=== PATIENT | female | born 1945 | race Caucasian/White ===

== ENCOUNTER 2021-06-11 18:28 | Inpatient (IN) | payer MEDICARE, OTHER ==
[~2021-06-11] VITALS: Ht 160 cm; Wt 94.1 kg
[2021-06-11] MEDS ORDERED: ATOR40TA PO (18:54)
[2021-06-11] MEDS ORDERED: CALC.25 PO (18:55)
[2021-06-11] MEDS ORDERED: Calcium Acetat667 MG PO (18:56)
[2021-06-11] MEDS ORDERED: 1/2 NS 250ml250 ML (19:07)
[2021-06-12 04:07] LABS: BASOPHILS ABSOLUTE AUTO 0.14 K/mm3 (0.00-0.23); BASOPHILS PERCENT AUTO 1 % (0-2); EOSINOPHILS ABSOLUTE AUTO 0.52 K/mm3 (0.00-0.68); EOSINOPHILS PERCENT AUTO 4 % (0-6); Hematocrit 36.6 % (33.0-51.0); Hemoglobin 11.3 g/dL (11.5-16.0); IMMATURE GRAN ABSOLUTE AUTO 0.65 K/mm3 (0.00-0.10); IMMATURE GRAN PERCENT AUTO 5 % (0-1); LYMPHOCYTES ABSOLUTE AUTO 2.35 K/mm3 (0.84-5.20); LYMPHOCYTES PERCENT AUTO 18 % (21-46); MONOCYTES ABSOLUTE AUTO 1.23 K/mm3 (0.16-1.47); MONOCYTES PERCENT AUTO 9 % (4-13); Mean Corpuscular HGB 30.5 pg (26.0-34.0); Mean Corpuscular HGB Conc 30.9 g/dL (31.5-36.5); Mean Corpuscular Volume 99 fL (80-100); NEUTROPHILS ABSOLUTE AUTO 8.36 K/mm3 (1.96-9.15); NEUTROPHILS PERCENT AUTO 63 % (41-73); Platelet Count 353 K/mm3 (150-400); RDW Coefficient Variation 13.4 % (11.7-14.2); RDW Standard Deviation 48.5 fL (35.1-46.3); White Blood Cell Count 13.25 K/mm3 (4.00-11.30)
[2021-06-12 04:29] LABS: Albumin, Blood 2.8 g/dL (3.4-5.0); Albumin/Globulin Ratio 0.7 (0.8-1.8); Bilirubin, Total 0.4 mg/dL (0.1-1.0); Bun/Creatinine Ratio 4.8 (12.0-20.0); Calcium, Blood 9.7 mg/dL (8.5-10.1); Creatinine, Blood 7.77 mg/dL (0.40-1.00); Globulin, Blood 4.2 g/dL (2.2-4.0); Potassium, Blood 3.6 mmol/L (3.5-5.5)
--- NOTE | 2021-06-12 06:20 | NUR ---
SHIFT SUMMARY: PT WAS ABLE TO ANSWER ORIENTATION QUESTIONS, BUT UNCLEAR TO HOW SHE ENDED UP IN HOSPITAL. SHE REPORTS THAT SHE BROKE HER LEG 2 WKS AGO (FROM A FALL AT HOME) AND STATES SHE WAS SUPPOSED TO HAVE DIALYSIS ON DAY OF ADMIT, WHICH CORRESPONDS TO EVENTS REPORTED BY SIGNIFICANT OTHER. PT HAS INTERMITTENT CONFUSION AND SIGNIFICANT OTHER REPORTS THIS IS ONGOING FOR QUITE SOME TIME. FOR EXAMPLE: PT WAS PICKING AT PEELING MATERIAL FROM BEDSIDE TABLE IN HOSP ROOM LAST NIGHT AND ATTEMPTED TO EAT IT. PT STILL MAKES URINE AND IS INCONT. URINE IN DIAPER WAS NOT DARK IN COLOR, NOR MALODOROUS. PT WAS PLEASANT AND COOPERATIVE OVERNIGHT. SHE WAS UNABLE TO SLEEP SOUNDLY, BUT ABLE TO TAKE A FEW SHORT NAPS. VSS OVERNIGHT. SHE HAS 2 PRESSURE INJURIES TO [facility] -POSSIBLY FROM HER RECENT HOSPITALIZATION. MEPILEX FOAM DRESSINGS APPLIED. PT DID NOT GET UP FROM THE BED OVERNIGHT-REFUSED ORTHOSTATICS UNTIL MORNING. SIGNIFICANT OTHER REPORTS THAT PT WAS D/C'D WITH HOME HEALTH FOR REHAB/STRENGTHENING, A HOSPITAL BED, HOME O2 AND WHEELCHAIR. NO O2 WAS REQUIRED OVERNIGHT.
[2021-06-12] MEDS ORDERED: CELEXA40 M1 PO (11:50)
[2021-06-12] MEDS ORDERED: DIPH50 PO (11:57)
[2021-06-12] MEDS ORDERED: NOVOLOG FL100 UNIT/3 SC (11:58)
[2021-06-12] MEDS ORDERED: SITA50T2 PO (11:58)
[2021-06-12] MEDS ORDERED: NOVOLOG MI100 UNIT/2 (11:59)
[2021-06-12] MEDS ORDERED: NYSTRIT TOP (12:00)
[2021-06-12] MEDS ORDERED: NOVOLOG MI100 UNIT/2 SC (12:00)
[2021-06-12] MEDS ORDERED: OMEPRAZOLE MAGN20 M1 PO (12:01)
[2021-06-12] MEDS ORDERED: SEVELAMER HCL PO (12:11)
[2021-06-12] MEDS ORDERED: TRAZ50 PO (12:12)
[2021-06-12] MEDS ORDERED: VENL75ER PO (12:13)
[2021-06-12] MEDS ORDERED: OLAN5 PO (12:13)
[2021-06-12] MEDS ORDERED: Primidone50 MG PO (12:13)
[2021-06-12] MEDS ORDERED: HYDHCL25 PO (12:14)
[2021-06-12] MEDS ORDERED: ALBU90OI INH (12:15)
--- NOTE | 2021-06-12 18:39 | NUR ---
NO ACUTE EVENTS T/O SHIFT. VSS. PT RECEIVED DIALYSIS TODAY AND TOLERATED WELL. NO C/O OF PAIN, LOW APPETITE, PT CONFUSED AND TEARFUL AT TIMES, ALERT AND ORIENTED X3 AT TIMES. DR RIVAS CONSULTED ON PT. WILL CONTINUE TO MONITOR AND GIVE REPORT TO NOC SHIFT RN.
--- NOTE | 2021-06-13 05:48 | NUR ---
SHIFT SUMMARY: PATIENT EXESSED SADNESS AT START OF SHIFT. SHE REPORTS MISSING HER BOYFRIEND. SHE STATES THAT SHE WAS AFRAID THAT HE WOULD FORGET HER. SHE ALSO ASKED IF SHE WAS GOING TO . COMFORT, REASSURANCE AND ENCOURAGEMENT WAS OFFERED. SHE EXPRESSED GRATITUDE. PATIENT REPORTS HAVING A SORE/DRY THROAT "ALL THE TIME". FLUIDS WERE OFFERED. VITAL SIGNS WERE STABLE OVERNIGHT. TRAZODONE WAS GIVEN AT BEDTIME AND PATIENT WAS ABLE TO SLEEP. NO EPISODES OF UNUSUAL BEHAVIOR OCCURRED OVERNIGHT.
[2021-06-13 09:02] LABS: Hematocrit 36.6 % (33.0-51.0); Hemoglobin 11.2 g/dL (11.5-16.0); Mean Corpuscular HGB 30.8 pg (26.0-34.0); Mean Corpuscular HGB Conc 30.6 g/dL (31.5-36.5); Mean Corpuscular Volume 101 fL (80-100); Mean Platelet Volume 9.8 fL (9.1-12.4); Platelet Count 319 K/mm3 (150-400); RDW Coefficient Variation 13.4 % (11.7-14.2); RDW Standard Deviation 50.2 fL (35.1-46.3); Red Blood Cell Count 3.64 M/mm3 (3.80-5.20); White Blood Cell Count 13.84 K/mm3 (4.00-11.30)
[2021-06-13 09:19] LABS: Albumin, Blood 2.8 g/dL (3.4-5.0); Anion Gap 9 mmol/L (6-16); Blood Urea Nitrogen 34 mg/dL (8-24); Bun/Creatinine Ratio 4.8 (12.0-20.0); CO2, Blood 23 mmol/L (21-32); Calcium, Blood 9.4 mg/dL (8.5-10.1); Chloride, Blood 101 mmol/L (98-108); Creatinine, Blood 7.05 mg/dL (0.40-1.00); Glomerular Filtration Rate 6 (60-); Glucose, Blood 132 mg/dL (70-99); Phosphorus, Blood 1.8 mg/dL (2.5-4.9); Potassium, Blood 3.7 mmol/L (3.5-5.5); Sodium, Blood 133 mmol/L (136-145)
--- NOTE | 2021-06-13 17:55 | NUR ---
NO ACUTE EVENTS T/O SHIFT. PT'S LEVEL OF CONFUSION VARRIED THROUGOUT THE DAY, AT SOME POINTS SHE IS A&OX4 AND AT OTHER TIMES SHE IS ONLY ORIENTED TO SELF AND DOES NOT KNOW WHERE SHE IS OR WHY. NO HD TODAY PER DR RIVAS, NEXT SCHEDULED FOR TOMORROW. PHYSICAL THERAPY EVALUATED PT TODAY, PT WAS ABLE TO SIT UP AT THE BEDSIDE, BUT DID NOT GET OOB D/T UNKNOWN RESTRICTIONS ON HER R LEG FX. RECORDS REQUESTED AND RECEIVED FROM [facility] IN [place], WHERE PT WAS RECENTLY ADMITTED FOR A FALL AND THE R LEG FX. HARVEY MURILLO NOTIFIED AND SHE STATES SHE WILL REVIEW THE RECORDS. PT RECEIVED A FULL BED BATH TODAY AND WAS ABLE TO TALK WITH HER SIGNIFICANT OTHER, LIZET, OVER THE PHONE. NURSING STAFF ENCOURAGING PT TO EAT, SHE HAS A MINIMAL APPETITE. WILL [facility]IN[facility] TO [facility]IT[facility] AND [facility]
--- NOTE | 2021-06-14 04:26 | NUR ---
PATIENT REMAINS IN BED ALER WITH SOME CONFUSIONS AT TIMES, FOLLOW COMMANDS. VITAL SIGNS STABLE.AFEBRILE, NO COMPLAINTS OF PAIN VOICED. INCONTINENT OF BOWEL AND BLADDER.LAST BM 06/13. MEPLEX APPIED TO [facility], PENDING DIALYSIS TODAY AT 0900. LABS TO BE DRAWN BY DIALYSIS NURSE. FREQUENTLY ROUNDS TO ENSURE PATIENT SAFETY. PATIENT REPOSITIONED Q 2 HRS. OFFLOADED TO PREVENT PRESSURE ULCERS. PATIEWNT IN NO DISTRESS. WILL CONTINUE TO MONITOR PATIENT CONDITION UNTIL TRANSFER OF CARE TO ONCOMING RN.
[2021-06-14 09:31] LABS: Hematocrit 33.6 % (33.0-51.0); Hemoglobin 11.2 g/dL (11.5-16.0)
[2021-06-14 09:54] LABS: Albumin, Blood 2.7 g/dL (3.4-5.0); Anion Gap 8 mmol/L (6-16); Blood Urea Nitrogen 47 mg/dL (8-24); Bun/Creatinine Ratio 5.9 (12.0-20.0); CO2, Blood 27 mmol/L (21-32); Calcium, Blood 9.7 mg/dL (8.5-10.1); Chloride, Blood 100 mmol/L (98-108); Creatinine, Blood 7.98 mg/dL (0.40-1.00); Glomerular Filtration Rate 5 (60-); Glucose, Blood 101 mg/dL (70-99); Magnesium, Blood 2.2 mg/dL (1.6-2.4); Phosphorus, Blood 2.6 mg/dL (2.5-4.9); Potassium, Blood 3.8 mmol/L (3.5-5.5); Sodium, Blood 135 mmol/L (136-145)
--- NOTE | 2021-06-14 17:09 | NUR ---
SHIFT SUMMARY PT ALERT AND ORIENTED TO SELF, FAMILY, AND PLACE. PT FORGETFUL AT TIMES, BUT REORIENTS EASILY. VS STABLE. O2 SATS REMAIN ABOVE 90% ON 2L NC. BP STABLE. PT DENIES ANY PAIN. PT HAD DIALYSIS IN ROOM THIS AM. PT FELT VERY ANXIOUS AFTER DIALYSIS AND MEDICATED PER EMAR. PT REPOSITIONED Q2H. PT INCONTINENT OF URINE THIS SHIFT AND ATTENDS IN PLACE. WILL CONTINUE TO MONITOR AND REPORT TO ONCOMING RN
[2021-06-15 04:36] LABS: Albumin, Blood 2.7 g/dL (3.4-5.0); Anion Gap 8 mmol/L (6-16); Blood Urea Nitrogen 27 mg/dL (8-24); Bun/Creatinine Ratio 4.7 (12.0-20.0); CO2, Blood 27 mmol/L (21-32); Calcium, Blood 9.3 mg/dL (8.5-10.1); Chloride, Blood 102 mmol/L (98-108); Creatinine, Blood 5.78 mg/dL (0.40-1.00); Glomerular Filtration Rate 7 (60-); Glucose, Blood 132 mg/dL (70-99); Phosphorus, Blood 2.1 mg/dL (2.5-4.9); Sodium, Blood 137 mmol/L (136-145)
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
--- NOTE | 2021-06-15 16:33 | NUR ---
SHIFT SUMMARY Pt is a/o to self and situation at times but is forgetful and confused. She has talked about her mom a lot today and reports feeling sad about her not being here. She has been inc of urine throughout the shift and is a max assist for turns and brief changes. No dialysis today but her scheduled days are MWF. She has a small open area on her buttock and there is a mepilex CDI. Her boot is in place to her right leg and her skin was intact underneath the boot. Plan is for her to DC to SNf on the [facility] and the DC systems requirements planner is working on finding placement for her as well as setting up dialysis. She is able to make her needs known when asked but does not always use the call light. She is resting now watching TV in bed.
[2021-06-15 21:07] LABS: HBSAG SCREEN Negative (Negative)
--- NOTE | 2021-06-15 23:04 | NUR ---
TRANSFER PT WAS TRANSFERED FROM PCU 19 TP [id number]. PT IS WAS MADE AWARE OF CHANGE. REPORT GIVEN TO RACQUEL RUVALCABA. PT LEFT PCU AT 2250. PT TOLERATED TRANSFER WELL.
--- NOTE | 2021-06-15 23:52 | NUR ---
TRANSFER PATIENT TRANSFERED FROM PCU#19 RECIVED REPORT FROM YUDITH RUVALCABA.PT AO TO SELF WITH SOME CONFUSION HARD OF HEARING NO TEETH IV LINE TO RIGHT AC AND PERMACATH TO LEFT UPPER CHEST INTACT DRESSING DRY PATIENT DIALYSIS -- .LEFT BUTTOCK OPEN WOUND TO LEFT BUTTOCK DRESSING DRY AND INTACT RIGHT LEG BOOT.PATIENT PLESANT BEBA PAIN AT THIS MOMENT
--- NOTE | 2021-06-16 05:09 | NUR ---
SHIFT SUMMARY PATIENT SLEPT THROUGH OUT THE NIGHT FLUIDS AND INCONTINTE CARE DONE BY STAFF NO ACUTE CHANGE IN THIS SHIFT
--- NOTE | 2021-06-16 16:15 | NUR ---
Patient was alert and orient x3. She was able to express her needs by using the call light. She had dialysis this morning and felt a bit fatigued upon returning to the unit. She was compliant with medications, and did request prn Tylenol for earpain. Patient recvd Hydroxyzine prn for anxiety prior to going to dialysis. Patient worked with therapy and continues to sit in the recliner. Patient appetite was fair and her glucose levels have been less than 150. Continue to monitor this patient
--- NOTE | 2021-06-17 03:26 | NUR ---
SHIFT SUMMARY RECEIVED AOX3 WITH SOME CONFUSION AT TIME PLEASANT RECEIVED CALL FROM BOY FRIEND LIZET THAT PT NEEEDS TO SEE INDUSTRIAL CLEANING TECHNICIAN SHE SEEMS DEPRESSED.LUNGS SOUND CLEAR TELE D/C NO ACUTE CHANGE NOTED
[2021-06-17 05:07] LABS: Hematocrit 35.4 % (33.0-51.0); Hemoglobin 11.4 g/dL (11.5-16.0)
[2021-06-17 05:35] LABS: Albumin, Blood 2.6 g/dL (3.4-5.0); Anion Gap 7 mmol/L (6-16); Blood Urea Nitrogen 25 mg/dL (8-24); Bun/Creatinine Ratio 4.8 (12.0-20.0); CO2, Blood 31 mmol/L (21-32); Calcium, Blood 9.2 mg/dL (8.5-10.1); Chloride, Blood 100 mmol/L (98-108); Creatinine, Blood 5.24 mg/dL (0.40-1.00); Glomerular Filtration Rate 8 (60-); Glucose, Blood 131 mg/dL (70-99); Phosphorus, Blood 2.2 mg/dL (2.5-4.9); Potassium, Blood 3.7 mmol/L (3.5-5.5); Sodium, Blood 138 mmol/L (136-145)
--- NOTE | 2021-06-17 06:47 | NUR ---
NEW ORDER RECIEVED NEW ORDER FROM DR GEORGETTE Astorga/Caitlin ROME GIVE SODIUM PHOSPHATE 20MM IV X 1 DOSE.ORDERS UPDATED AND PHARMACY MADE AWARE
--- NOTE | 2021-06-17 10:28 | NUR ---
PT WAS ASSISTED UP FROM THE CHAIR TO THE BSC THIS AM. PASSED GAS NO BM OR VOID. UPON GETTING UP EDGARD THE BSC THE PT FELT LIGHTHEADED/DIZZY AND WAS ASSITED BACK TO THE CHAIR VS WERE TAKEN AND WNL
--- NOTE | 2021-06-17 16:13 | NUR ---
PT IS A/OX3, SLOW TO RESPOND. PLEASANT AND COOPERATIVE. THE PT WAS ASSISTED UP INTO THE CHAIR THIS AM AND TO THE [facility] AFTER BREAKFAST. THE PT BECAME LIGHT HEADED AND DIZZY WHEN UP THE PT SAT BACK DOWN VS CHECKED WERE WNL. THE PT RECOVERED. THE OCCUPATIONAL THERAPIST WORKED WITH THE PT LATER IN THE AM AND WAS ABLE TO TRANSFER THE PT BACK TO BED WITHOUT ANY LIGHTHEADEDNESS EPISODE. THE PT HAD 2 LOOSE BMS TODAY. PT HAD A POOR APPETITE TODAY. PT WAS ENCOURAGED TO DRINK FLUIDS. CALL LIGHT IN REACH. WILL CONTINUE TO MONITOR AND ASSESS FOR CHANGES
--- NOTE | 2021-06-18 03:21 | NUR ---
SHIFT SUMMARY PATIENT ALERT AND ORIENTED PLEASANT NO ASHLEY OF DEPRESSION NOTED DRESSING CHANGED TO BUTTOCK WOUND NOTED REDNESS TO HER PERIAREA CLEANSED AND CREAM APPLIED.NO ACUTE CHANGED
[2021-06-18 05:25] LABS: Hematocrit 34.5 % (33.0-51.0)
[2021-06-18 05:52] LABS: Albumin, Blood 2.6 g/dL (3.4-5.0); Anion Gap 10 mmol/L (6-16); Blood Urea Nitrogen 41 mg/dL (8-24); Bun/Creatinine Ratio 6.2 (12.0-20.0); CO2, Blood 28 mmol/L (21-32); Calcium, Blood 8.5 mg/dL (8.5-10.1); Chloride, Blood 98 mmol/L (98-108); Creatinine, Blood 6.61 mg/dL (0.40-1.00); Glomerular Filtration Rate 6 (60-); Glucose, Blood 118 mg/dL (70-99); Magnesium, Blood 1.9 mg/dL (1.6-2.4); Phosphorus, Blood 3.9 mg/dL (2.5-4.9); Potassium, Blood 3.6 mmol/L (3.5-5.5); Sodium, Blood 136 mmol/L (136-145)
--- NOTE | 2021-06-18 11:50 | NUR ---
PT HAD AN ACTIVE TELE ORDER AT THE START OF THE SHIFT TODAY. CALLED TELE THE PT IS NO LONGER ON TELE, NO DC ORDER IN THE CHART. TELE STATED THE TELE WAS REMOVED ON 06-16-21. CALLED DR HERRON AND SHE STATED THE ORDER SHOULD BE DC'D. DC TELE ORDER PLACED, ALSO RECIEVED ORDER FOR NO IV ACCESS WELL.
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
--- NOTE | 2021-06-18 15:47 | NUR ---
MS COLE IS QUIET IN AFFECT, WORDS DIFFICULT TO UNDERSTAND AT TIMES, ORIENTATED TO HER NAME AND BIRTHDATE, SOME CONFUSED CONVERSATION, SOME CLEAR CONVERSATION. SHE MADE A PHONE CALL TO HER BOYFRIEND THIS MORNING AND HER SPEACH WAS CLEAR AND HER AFFECT MORE UPBEAT WHILE TALKING ON THE PHONE. SHE WENT TO DIALYSIS THIS MORNING. WHEN SHE RETURNED PT WAS WORKING WITH HER, GETTING HER OUT OF BED TO THE CHAIR. MS. COLE SAID SHE FELT UNWELCOME, WAS SAD, DISTRESSED. VOICE VERY QUIET AND SHE KEPT WANTING TO LIE DOWN, NON-SPECIFIC COMPLAINT OF FEELING BAD. VS CHECKED, BP ELEVATED AND HEART RATE ELEVATED (211/117,120S) WHEREAS SHE HAS HISTORICALLY HAD A LOW BP. SHE APPEARED TO BE ANXIOUS. SHE WAS GIVEN THE PHONE TO TALK WITH HER BOYFRIEND, THIS SEEMED TO HELP HER AND HER VOICE WAS CLEARER AGAIN, HR ALREADY DOWN TO 100. 30 MINUTES LATER BP WAS RECHECKED AT 87/57 - MEDS GIVEN PER MAR TO HELP BP. VERY POOR PO INTAKE TODAY. ENCOURAGED TO DRINK ENSURE. SHE TENDS TO TURN HER HEAD AWAY WHEN OFFERED FOOD. SHE DID DRINK HER MILK. ENCOURAGED TO DRINK AND EAT FOR NUTRITIONAL NEEDS. WILL CONTINUE TO ENCOURAGE HER AND GIVE HER EMOTIONAL SUPPORT. PIV REMOVED EARLIER TODAY.
--- NOTE | 2021-06-18 18:54 | NUR ---
MS JAMA HAD ONE EPISODE OF SHORT LASTING HYPERTENSION TODAY, SEE PREVIOUS NOTE, POSSIBLY RELATED TO ANXIETY AND PRIOR AND FUTURE BPS WERE LOW. HAD DIALYSIS THIS MORNING, SAT OUT IN CHAIR FOR A LOT OF THE AFTERNOON. POOR DIET INTAKE, DID TAKE SOME ENSURE WITH ENCOURAGEMENT, BUT OVERALL POOR INTAKE FROM MEAL TRAYS. CONVERSATION WITH CONFUSION, SOMETIMES CLEAR SPEACH, SOMETIMES SPEAKS VERY QUIETLY AND HARD FOR ME TO UNDERSTAND. BLOOD SUGAR 191 PRE SUPPER, BUT MORE LIKELY RELATED TO DRINKS IN THE AFTERNOON RATHER THAN HER FOOD, NOT TAKING MUCH FROM HER MEAL TRAY SO MD CHANGED SLIDING SCALE TO NOT COVER THIS DUE TO POOR PO. PIV REMOVED EARLIER TODAY. BED LOW, CALL LIGHT IN REACH. BED AND CHAIR ALARMS ON TODAY. 2 PERSON ASSIST WITH GAIT BELT AND WALKER FOR TRANSFERS.
[2021-06-19 05:02] LABS: Hematocrit 35.7 % (33.0-51.0); Hemoglobin 11.5 g/dL (11.5-16.0)
[2021-06-19 05:17] LABS: Albumin, Blood 2.4 g/dL (3.4-5.0); Anion Gap 10 mmol/L (6-16); Blood Urea Nitrogen 35 mg/dL (8-24); Bun/Creatinine Ratio 7.2 (12.0-20.0); CO2, Blood 26 mmol/L (21-32); Calcium, Blood 8.7 mg/dL (8.5-10.1); Chloride, Blood 97 mmol/L (98-108); Creatinine, Blood 4.86 mg/dL (0.40-1.00); Glomerular Filtration Rate 9 (60-); Glucose, Blood 137 mg/dL (70-99); Phosphorus, Blood 2.6 mg/dL (2.5-4.9); Potassium, Blood 3.6 mmol/L (3.5-5.5); Sodium, Blood 133 mmol/L (136-145)
--- NOTE | 2021-06-19 08:08 | NUR ---
PT A/O TO PERSON AND STATED THAT SHE BROKE HER LEG, BOOT WAS OFF AND WAS REAPPLIED TO RLE AND CSM WNL TO THAT EXTREMITY, MEDICATED X1 WITH TYLENOL FOR C/O RT. LEG PAIN AND MED W EFFECTIVE.INCONTINENT OF BLADDER WITH DEPEND ON AND CHANGED, BS AC/HS CONTINUED, PT RESTED QUIETLY THIS SHIFT. NO ACUTE DISTRESS NOTED.
--- NOTE | 2021-06-19 08:26 | NUR ---
MS COLE IS ORIENTATED TO SELF, KNOWS HER BIRTHDAY AND THAT IT'S 2022, SHE KNOWS SHE'S IN THE HOSPITAL, BUT NOT THE MONTH OR THE CITY. HER SPEACH IS CLEAR AT THE MOMENT, CHATTING ABOUT HER CAT AND ASKING QUESTIONS. SHE IS TAKING NEPRO SUPPLIMENT AND LIKES THE STRAWBERRY FLAVOR. ASSISTED WITH HER BREAKFAST AND ENCOURAGED TO EAT.
--- NOTE | 2021-06-19 12:47 | NUR ---
MS COLE HAS BEEN MORE CHEERFUL TODAY THAN YESTERDAY, SHE HAS TALKED TO LIZET A COUPLE OF TIMES, AND HAS ENGAGED WITH ME IN CONVERSATION ABOUT WORLD EVENTS, SPORTS AND PETS. I TALKED TO LIZET ON THE PHONE WITH MS COLE'S PERMISSION AND HE SAID THAT SHE SEEMS REASONABLY NORMAL AFFECT TO HIM ON THE TELEPHONE. SHE HAS DRANK MORE ORAL FLUIDS THIS MORNING, DIDN'T LIKE THE HAMBURGER FOR LUNCH AND DIDN'T WANT ANYTHING ELSE ORDERED. SHE DID DRINK MILK. TURNED APPROX Q2HRS OFF HER BUTTOCKS SIDE TO SIDE AND PROPPED WITH PILLOWS. PASTORAL CARE TO BEDSIDE - PT SAID SHE FELT LONELY THIS MORNING.
--- NOTE | 2021-06-19 12:47 | NUR ---
CALLED AND SPOKE TO DIETITIAN- PT HAS HAD LITTLE TO NO PO INTAKE, SHE DOES NOT SEEM TO LIKE THE TASTE OF ANYTHING, STAFF HAVE ATTEMPTED TO ASHISH HER WITH MEALS AND SHE OFTEN SPITS OUT BITES OF FOOD SAYING "YUCK." PT TRIED A SMALL SIP OF THE NEPOR AND DI NOT LIKE THAT AT ALL DECLINING TO DRINK MORE. DIETITIAN SUGGESTIONS WERE TO HAVE THE PT BRUSH HER TOUNG AND THE ROOF OF HER MOUTH PRIOR TO MEALS, PT HAS NO TEETH SO [facility], SHE ALSO SUGGESTED AN APPETITE STIMULANT. WILL CALL DR MURILLO TO DISCUSS THIS.
--- NOTE | 2021-06-19 13:04 | NUR ---
SPOKE TO DR MURILLO ABOUT PT EATING HABBITS RECIEVED OK TO TRY MECHANICAL SOFT GROUND MEATS, NO OTHER ORDERS AT THIS TIME. SHE REQUESTED THAT WE SPEAK TO THE PT ABOUT ORAL PAIN. PT HAS NOT SSPOKEN TO THIS RN ABOUT MOUTH PAIN, WILL SPECIFICALLY INQUIRE ABOUT IT ONCE SHE IS DONE VISITING WITH PASTORAL CARE.
--- NOTE | 2021-06-19 13:54 | NUR ---
Call back - Met with pt who appeared comfortable and well taken care of. Provided room for pt to reminisce about her life. Pt was briefly tearful expressing grief from loss of family members. Pt confabulates about challenges growing up, specifically living with autism. Pt voiced her love for animals and we discuss her gift for caring for them. Pt saddened by her memory loss, though we are able to pinpoint positive memories with her animals and children. Audible prayer extended and pastoral encouragement given. Pt expressed gratitude for the visit and smiled. Call back ended.
--- NOTE | 2021-06-19 14:27 | NUR ---
ORAL CARE DONE WITH TOOTHPASTE, TOOTHBRUSH, SPONGES. MS. COLE SAID THAT HER MOUTH FEELS BETTER AFTERWARDS. NO TEETH. WHEN FIRST ASKED IF HER THROAT HURT SHE SAID IT HAS BEEN SORE FOR ABOUT A WEEK, ALMOST IMMEDIATELY FOLLOWED BY HER TELLING ME THAT SHE DOES NOT HAVE ANY THROAT OR MOUTH PAIN AT ALL. SHE HAS TOLD ME SEVERAL TIMES HOW GOOD IT WAS TO HAVE PASTORAL CARE AND HOW GOOD SHE FEELS AFTERWARDS. DIARRHOEA X 1 EPISODE, CHANGED AND REPOSITIONED. MEPLEX DRESSING INTACT TO [facility].
--- NOTE | 2021-06-19 18:23 | NUR ---
MS COLE HAS BEEN MORE CHEERFUL AND TALKATIVE TODAY. REMAINS CONFUSED, BUT ENGAGED IN MANY CONVERSATIONS. STILL TAKING IN POOR DIET, BUT SHE IS BRISA TO DRINK FLUIDS THAN YESTERDAY AND TOLERATED SMALL AMOUNTS OF SUPPLIMENTS/ FLUIDS. POOR PO INTAKE DISCUSSED WITH DR AGUILLON/RN (SEE NOTES). TURNED AND REPOSITIONED APPROX EVERY 2 HOURS. BED LOW. CALL LIGHT IN REACH.
[2021-06-20 05:16] LABS: Hematocrit 34.5 % (33.0-51.0)
[2021-06-20 05:43] LABS: Albumin, Blood 2.4 g/dL (3.4-5.0); Anion Gap 8 mmol/L (6-16); Blood Urea Nitrogen 51 mg/dL (8-24); CO2, Blood 31 mmol/L (21-32); Calcium, Blood 9.1 mg/dL (8.5-10.1); Chloride, Blood 94 mmol/L (98-108); Creatinine, Blood 6.38 mg/dL (0.40-1.00); Glomerular Filtration Rate 6 (60-); Glucose, Blood 125 mg/dL (70-99); Magnesium, Blood 1.8 mg/dL (1.6-2.4); Potassium, Blood 3.6 mmol/L (3.5-5.5); Sodium, Blood 133 mmol/L (136-145)
--- NOTE | 2021-06-20 07:30 | NUR ---
ASSUMED CARE OF PT- PT ALERT AND ORIENTED TO SELF AND BOYFRIEND LUIS. PT PLEASENTLY CONFUSED THIS MORNING. SHE DOES HAVE A Hx OF DEPRESSION AND SOMETIMES CONVEYS SADNESS, BUT THIS MORNING SHE SEEMS VERY HAPPY AND IS COOPERATIVE AND PLEASENT WITH STAFF. PT REPOSITIONED AND CHANGED AT THE START OF SHIFT, MEPILEX IN PLACE ON COCCYX IS C/D/I. PT IS A DIALYSIS PT BUT STILL VOIDS A VERY SMALL AMOUNT OF URINE INCONTINENTLY. PT TO GO TO DIALYSIS AGAIN TODAY, SHE DENIES ANY PAIN OR SOB. WILL CTM.
--- NOTE | 2021-06-20 07:35 | NUR ---
SHIFT SUMMARY PT ALERT TO PERSON AND DATE OF , FORGETFUL BUT IS COOPERATIVE, DIALYSIS CATHETER INTACT TO LEFT CHEST, [facility] DSRG D/I, TURNED AND REPOSITIONED Q2HRS, MEDICATED X1 WITH TYLENOL FOR C/O CRAIG AND MED WAS EFFECTIVE,NO ACUTE DISTRESS THIS SHIFT.
--- NOTE | 2021-06-20 17:32 | NUR ---
SHIFT SUMMARY- PT ALLERT AND ORIENTED TO SELF. SHE HAS BEEN PLEASENT T/O THE DAY. PT HAD A LARGE SOFT FORMED BM IN DIALYSIS TODAY, PER REPORT FROM SARAH RN. PT HAD DIALYSIS AGAIN TODAY, PER REPORT FROM DIALYSIS THE PT PERMACATH IS STILL NOT RUNNING WELL. NO IR AVAILABLE FOR CONSULT UNTIL 06/22/21, DR COTA. PLAN IS FOR DISCHARGE TO SNF WITH A NEED FOR DIALYSIS CHAIR TIME. PT PLEASENTLY CONFUSED AND WILLING TO WORK WITH STAFF. PT ATE A LITTLE MORE FOOD TODAY WHEN COMPARED TO PREVIOUS DAYS. PT EATS MORE WHEN SHE IS ASSISTED WITH FEEDING, WILL PASS ON TO NEXT SHIFT RN IN REPORT. WILL CTM
[2021-06-21 05:11] LABS: Hematocrit 35.2 % (33.0-51.0); Hemoglobin 10.8 g/dL (11.5-16.0)
[2021-06-21 06:09] LABS: Albumin, Blood 2.4 g/dL (3.4-5.0); Anion Gap 7 mmol/L (6-16); Blood Urea Nitrogen 39 mg/dL (8-24); Bun/Creatinine Ratio 8.2 (12.0-20.0); CO2, Blood 29 mmol/L (21-32); Calcium, Blood 9.3 mg/dL (8.5-10.1); Chloride, Blood 99 mmol/L (98-108); Creatinine, Blood 4.73 mg/dL (0.40-1.00); Glomerular Filtration Rate 9 (60-); Glucose, Blood 182 mg/dL (70-99); Phosphorus, Blood 1.7 mg/dL (2.5-4.9); Potassium, Blood 3.9 mmol/L (3.5-5.5); Sodium, Blood 135 mmol/L (136-145)
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
[2021-06-22 05:04] LABS: Hematocrit 37.8 % (33.0-51.0); Hemoglobin 11.2 g/dL (11.5-16.0)
[2021-06-22 05:11] LABS: Albumin, Blood 2.3 g/dL (3.4-5.0); Anion Gap 10 mmol/L (6-16); Blood Urea Nitrogen 51 mg/dL (8-24); Bun/Creatinine Ratio 9.9 (12.0-20.0); CO2, Blood 25 mmol/L (21-32); Calcium, Blood 8.7 mg/dL (8.5-10.1); Chloride, Blood 98 mmol/L (98-108); Creatinine, Blood 5.14 mg/dL (0.40-1.00); Glomerular Filtration Rate 8 (60-); Glucose, Blood 139 mg/dL (70-99); Magnesium, Blood 1.5 mg/dL (1.6-2.4); Phosphorus, Blood 3.1 mg/dL (2.5-4.9); Potassium, Blood 4.2 mmol/L (3.5-5.5); Sodium, Blood 133 mmol/L (136-145)
[2021-06-22 09:59] LABS: Influenza A, PCR NEGATIVE (NEGATIVE); Influenza B, PCR NEGATIVE (NEGATIVE); Resp Syncytial Virus, PCR NEGATIVE (NEGATIVE); SARS-Cov-2 (COVID-19) PCR, MMC NEGATIVE (NEGATIVE)
--- NOTE | 2021-06-22 16:46 | NUR ---
DAY SHIFT SUMMARY 75 YR OLD PT PLEASANTLY CONFUSED, ADMITTED WITH AMS AND CKD. PT HAD DIALYSIS TODAY. ANGLEDOZER OPERATOR CALLED TO STATE IF DIALYSIS ABLE TO BE COMPLETED TODAY THEY WOULD WAIT AND SEE HER OUT PT TO REPLACE HER PERMACATH. CALL LIGHT WITHIN REACH OF PT, NOT ABLE TO CALL APPROPRIATELY, FREQUENT ROUNDING PERFORMED. PT ABLE TO PRODUCE A BM TODAY ON BSC.
--- NOTE | 2021-06-23 04:41 | NUR ---
75 year old female with esrd & hemodialysis continues with lt chest perm cath & has dialysis orders managed by DR Stewart. She was very anxious about not being able to reach friend Daniel who lives at [place]. PT assisted to place call & she calmed down. Atarax 50 mg po x 1 with helpful effect. She was incontinent of bowel & bladder, confabulated reason for fecal incont. PT has rt ankle fx from fall, bed alarm on PT does not attempt to get out of bed.
[2021-06-23 05:34] LABS: Hematocrit 38.2 % (33.0-51.0); Hemoglobin 11.7 g/dL (11.5-16.0)
[2021-06-23 06:05] LABS: Albumin, Blood 2.5 g/dL (3.4-5.0); Anion Gap 9 mmol/L (6-16); Blood Urea Nitrogen 35 mg/dL (8-24); Bun/Creatinine Ratio 8.7 (12.0-20.0); CO2, Blood 28 mmol/L (21-32); Calcium, Blood 9.3 mg/dL (8.5-10.1); Chloride, Blood 100 mmol/L (98-108); Creatinine, Blood 4.04 mg/dL (0.40-1.00); Glomerular Filtration Rate 11 (60-); Glucose, Blood 147 mg/dL (70-99); Magnesium, Blood 2.2 mg/dL (1.6-2.4); Phosphorus, Blood 2.9 mg/dL (2.5-4.9); Sodium, Blood 137 mmol/L (136-145)
--- NOTE | 2021-06-23 19:43 | NUR ---
END OF SHIFT SUMMARY: PATIENT DENIED PAIN THROUGHOUT THE SHIFT. PATIENT UP TO THE CHAIR FOR BREAKFAST. PATIENT CALM AND COOPERATIVE WITH CARE. PATIENT HAS SOME CONFUSION (FOR EXAMPLE: ATTEMPTING TO CALL HER BOYFRIEND USING THE CALL LIGHT RATHER THAN THE PHONE). EASILY REDIRECTED. PATIENT ABLE TO FOLLOW DIRECTIONS. PATIENT EATS BEST WHEN SHE HAS STAFF IN THE ROOM TO ASSIST WITH EATING AND ENCOURAGE HER TO EAT. NO DIFFICULTIES WITH SWALLOWING NOTED.
--- NOTE | 2021-06-24 05:12 | NUR ---
Patient is alert and oriented x3, forgetful. She can follow commands and helps turn. No complains of pain. Patient is able to swallow meds. Patient is incontinence in bowel and urine. Snacks given. Permacath dressing is changed today, clean dry and intact. Q2 turns compeleted. Call light within reach. Bed alarm on.
[2021-06-24 05:26] LABS: Hematocrit 32.9 % (33.0-51.0); Hemoglobin 10.8 g/dL (11.5-16.0)
[2021-06-24 05:45] LABS: Albumin, Blood 2.2 g/dL (3.4-5.0); Anion Gap 5 mmol/L (6-16); Blood Urea Nitrogen 48 mg/dL (8-24); Bun/Creatinine Ratio 10.1 (12.0-20.0); CO2, Blood 31 mmol/L (21-32); Calcium, Blood 8.9 mg/dL (8.5-10.1); Chloride, Blood 100 mmol/L (98-108); Creatinine, Blood 4.75 mg/dL (0.40-1.00); Glomerular Filtration Rate 9 (60-); Glucose, Blood 134 mg/dL (70-99); Magnesium, Blood 1.8 mg/dL (1.6-2.4); Phosphorus, Blood 3.2 mg/dL (2.5-4.9); Potassium, Blood 4.3 mmol/L (3.5-5.5); Sodium, Blood 136 mmol/L (136-145)
--- NOTE | 2021-06-24 15:51 | NUR ---
Pt. is awake and eating a sandwich. Pt welcomes my visit. Pt. is consistantly unsettled about her isolation from most of her family. Pt. verbalized she does not have the support of her family. Pt verbalizes that there are freinds who look after and care for her. Listen empathetically and give pastoral business and financial counsel. Pt. displays evidence of a more selfless attitude. [place] with Pt. Pt. verbalizes the personal importance of spiritual care prayers. Pt. verbalizes her gratitude for the visit.
--- NOTE | 2021-06-24 16:41 | NUR ---
SHIFT SUMMARY PATIENT IS ALERT AND ORIENTED X2-3. PATIENT IS PLEASENTLY CONFUSED. PATIENT CAN FOLLOW COMMANDS. PATIENT IS A ONE PERSON PIVOT TRANSFER. PATIENT HAS WORKED WITH PT AND OT GETTING UP AND AROUND TO CHAIR. PATIENT HAS HAD NO ACUTE EVENTS THIS SHIFT. PATIENT HAS HAD A HEADACHE MEDICATED PER EMAR. PATIENT HAS NOT COMPLAINED OF ANY OTHER PAIN, NAUSEA, VOMITTING OR SOB THIS SHIFT. VITAL SIGNS REVIEWED. CALL LIGHT IN PLACE. TURNED Q2. PATIENT HAS HAD POOR APPETITE AND OFFERED SNACKS TO ENCOURAGE PO INTAKE. BED IN LOCKED AND LOWEST POSITION. WILL MONITOR UNTIL SHIFT CHANGE.
--- NOTE | 2021-06-25 05:26 | NUR ---
Patient is alert and oriented x2-3, forgetful. No complains of pain. No SOB. Patient has poor appetite. Patient slept all night. Call light within reach.
--- NOTE | 2021-06-25 05:58 | NUR ---
Patient refuse vitals this morning.
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
--- NOTE | 2021-06-25 16:05 | NUR ---
SHIFT SUMMARY PATIENT IS ALERT AND ORIENTED X2-3. PATIENT IS PLEASENTLY CONFUSED. PATIENT WORKED WITH PHYSICAL THERAPY TODAY AND TRANSFERRED TO CHAIR AND REMAINED IN CHAIR FOR A COUPLE HOURS. VITAL SIGNS REVIEWED. PATIENT HAS HAD NO COMPLAINTS OF PAIN, NAUSEA, VOMITTING, OR SOB. VITAL SIGNS REVIEWED. PATIENT HAS HAD NO ACUTE EVENTS THIS SHIFT. BED IN LOWEST POSITION. CALL LIGHT IN PLACE. WILL MONITOR UNTIL SHIFT CHANGE.
[2021-06-26 04:48] LABS: Hematocrit 32.9 % (33.0-51.0); Hemoglobin 10.2 g/dL (11.5-16.0)
[2021-06-26 05:06] LABS: Albumin, Blood 2.3 g/dL (3.4-5.0); Anion Gap 5 mmol/L (6-16); Blood Urea Nitrogen 59 mg/dL (8-24); Bun/Creatinine Ratio 13.3 (12.0-20.0); CO2, Blood 31 mmol/L (21-32); Calcium, Blood 9.2 mg/dL (8.5-10.1); Chloride, Blood 101 mmol/L (98-108); Creatinine, Blood 4.45 mg/dL (0.40-1.00); Glomerular Filtration Rate 10 (60-); Glucose, Blood 158 mg/dL (70-99); Magnesium, Blood 1.7 mg/dL (1.6-2.4); Phosphorus, Blood 2.8 mg/dL (2.5-4.9); Potassium, Blood 4.5 mmol/L (3.5-5.5); Sodium, Blood 137 mmol/L (136-145)
--- NOTE | 2021-06-26 05:49 | NUR ---
SHIFT SUMMARY Pt rested well, no c/o pain, claribel po but has poor appetite. Pt a/o to self and date, has been calm, cooperative this shift. Pt incontinent of urine, roverto care done, repositioned for comfort. Dialysis permacath to L chest, drsg c/d/i. Pt wearing boot to R foot to help support her ankle fx. VSS, anticipate d/c when medically stable.
--- NOTE | 2021-06-26 17:52 | NUR ---
SHIFT SUMMARY PATIENT IS ALERT AND ORIENTED TO SELF AND SURROUNDINGS. PATIENT HAS BEEN PLEASENT AND COOPERATIVE WITH CARE. PATIENT HAS CONTINUED TO HAVE A POOR APPETITE. PATIENT IS INCONTINENT OF URINE AND STOOL THIS SHIFT. PATIENT HAD DIALYSIS TODAY WITHOUT INCIDENT. PATIENT HAS HAD NO ACUTE INCIDENTS THIS SHIFT. VITAL SIGNS REVIEWED. BED IS IN LOCKED AND LOWEST POSITION. CALL LIGHT IN PLACE. WILL MONITOR UNTIL SHIFT CHANGE.
[2021-06-27 05:06] LABS: Hematocrit 32.3 % (33.0-51.0); Hemoglobin 10.2 g/dL (11.5-16.0)
[2021-06-27 05:36] LABS: Albumin, Blood 2.2 g/dL (3.4-5.0); Anion Gap 5 mmol/L (6-16); Blood Urea Nitrogen 42 mg/dL (8-24); Bun/Creatinine Ratio 12.5 (12.0-20.0); CO2, Blood 32 mmol/L (21-32); Calcium, Blood 8.9 mg/dL (8.5-10.1); Chloride, Blood 99 mmol/L (98-108); Creatinine, Blood 3.36 mg/dL (0.40-1.00); Glomerular Filtration Rate 13 (60-); Glucose, Blood 166 mg/dL (70-99); Magnesium, Blood 1.7 mg/dL (1.6-2.4); Phosphorus, Blood 2.8 mg/dL (2.5-4.9); Potassium, Blood 4.6 mmol/L (3.5-5.5); Sodium, Blood 136 mmol/L (136-145)
--- NOTE | 2021-06-27 06:22 | NUR ---
SHIFT SUMMARY Pt rested well, has been calm, cooperative this shift. No c/o pain or nausea, a/o x 2, claribel po but has minimal appetite. Permacath to L chest wnl, pt incontinent of urine, roverto care done and pt repositioned for comfort and to prevent skin breakdown. VSS, anticipate d/c when medically stable and placement determined.
--- NOTE | 2021-06-27 16:38 | NUR ---
SHIFT SUMMARY PATIENT IS ALERT AND ORIENTED TO SELF AND SURROUNDINGS. PATIENT HAS HAD MINIMAL APPETITE TODAY. PATIENT HAS BEEN INCONTINENT OF URINE AND STOOL. PATIENT HAS BEEN TURNED Q2 TODAY. VITAL SIGNS ARE REVIEWED. PATIENT HAS HAD NO ACUTE EVENTS THIS SHIFT. PATIENT HAS HAD NO COMPLAINTS OF PAIN, NAUSEA, SOB OR VOMITTING THIS SHIFT. PATIENT IS AWAITING PLACEMENT ON THE COAST. BED IS IN LOCKED AND LOWEST POSITION. CALL LIGHT IN PLACE. WILL MONITOR UNTIL SHIFT CHANGE.
[2021-06-28 04:41] LABS: Hematocrit 32.7 % (33.0-51.0); Hemoglobin 10.1 g/dL (11.5-16.0)
[2021-06-28 05:00] LABS: Albumin, Blood 2.2 g/dL (3.4-5.0); Anion Gap 4 mmol/L (6-16); Blood Urea Nitrogen 60 mg/dL (8-24); Bun/Creatinine Ratio 14.7 (12.0-20.0); CO2, Blood 32 mmol/L (21-32); Calcium, Blood 9.4 mg/dL (8.5-10.1); Chloride, Blood 100 mmol/L (98-108); Creatinine, Blood 4.09 mg/dL (0.40-1.00); Glomerular Filtration Rate 11 (60-); Glucose, Blood 173 mg/dL (70-99); Magnesium, Blood 1.9 mg/dL (1.6-2.4); Phosphorus, Blood 3.4 mg/dL (2.5-4.9); Potassium, Blood 4.7 mmol/L (3.5-5.5); Sodium, Blood 136 mmol/L (136-145)
--- NOTE | 2021-06-28 16:49 | NUR ---
PATIENT HAD DIALYSIS TODAY. SHE ALSO HAD AN XRAY OF THE RIGHT LEG. A CONSULT WAS PLACED TO BE ASSESSED FOR WEIGHT BEARING ACTIVITY. PATIENT HAS CRACKLES IN LUNGS AND A COUGH THAT IS OCCASIONALLY PRODUCTIVE PER PATIETN REPORT. SHE IS ALERT BUT APPEARS TO BE CONFUSED AND FORGETFUL AT TIMES. HISTORY OF DEPRESSION- TODAY WAS CRYING BECAUSE SHE MISSES HER . THIS FINANCIAL SECRETARY ALONG WITH THERAPY STOOD THE PATIENT BRIEFLY. WEAKNESS WAS PRESENT AND STRENGTH APPEARS DIMINISHED.
--- NOTE | 2021-06-29 04:35 | NUR ---
SHIFT SUMMARY Patient alert and oriented. No pain or disconfort voices. She slept confortably most of the shift. She is dialysis patient waiting for placement. No events occurs during this shift. We will continue to monitor until report given to the oncoming nurse.
--- NOTE | 2021-06-29 10:11 | NUR ---
PATIENT WAS PARANOID THIS MORNING. GAVE PRN ATARAX AND PATIENT IS NOW IN A PLEASANT MOOD. PATIENT IS A AND O 3X. PATIENT WAS ABLE TO WALK SHORT DISTANCE WITH THERAPY AND SIT IN THE CHAIR DESPITE HX OF ANKLE FX.
--- NOTE | 2021-06-30 10:29 | NUR ---
PATIENT A AND O TO SELF AND PLACE. PATIENT MORE PARANOID AND IRRITABLE TODAY THEN YESTERDAY. PATIENT GOT DYALYSIS TODAY. PT. AWAITING PLACEMENT TO FACILITY.
--- NOTE | 2021-07-01 06:00 | NUR ---
Patient is alert and oriented to self only. Patient is forgetful, but redirectable. She is incontinent in urine and bowels. Patient is able to turn on bed. No complains of pain. No SOB. Call light within reach.
--- NOTE | 2021-07-01 16:16 | NUR ---
DAY SHIFT SUMMARY 75 YR OLD FEMALE PT ADMITTED FOR AMS AND CKD. PT RECEIVED DIALYSIS FROM [facility] IN [place] BEFORE HOSPITAL ADMIT. PT CURRENTLY WAITING PLACEMENT. A/O TO SELF - CONFUSED. NO ACUTE CHANGES THIS SHIFT. PT ON RA. CALL LIGHT WITHIN REACH. FREQUENT ROUNDING PT DOES NOT CALL APPROPRIATELY.
--- NOTE | 2021-07-02 05:42 | NUR ---
Patient is alert and oriented to self only. Patient is confuse but redirectable. She can also get agitated towards staff. Patient needs full assist when changing, but will help turn. Patient is in and out of sleep through out the night. Complains of headache, PRN tylenol given. Call ligth within reach.
--- NOTE | 2021-07-02 09:31 | NUR ---
MORNING ASSESSMENTS AND CHECKS PT NON-COOPERATIVE THIS AM. REFUSED TO HAVE ATTENDS CHECKED, REFUSED TO BE CLEANED. PT CURRENTLY IN DIALYSIS. PT STATES SHE IS NOT SUPPOSE TO BE HERE BUT SHOULD BE IN [place]. EXPLAINED TO PT SHE IS IN THE HOSPITAL AND WILL BE ABLE TO GO BACK TO [place] [facility] WHEN DISCHARGED. PT THREATENING TO HIT AND "BEAT" ANYONE WHO TOUCHES HER OR CHECKS HER ATTENDS THIS AM.
[2021-07-02 09:56] LABS: Hematocrit 32.5 % (33.0-51.0)
[2021-07-02 10:23] LABS: Albumin, Blood 2.4 g/dL (3.4-5.0); Anion Gap 9 mmol/L (6-16); Blood Urea Nitrogen 52 mg/dL (8-24); Bun/Creatinine Ratio 12.1 (12.0-20.0); CO2, Blood 30 mmol/L (21-32); Chloride, Blood 98 mmol/L (98-108); Creatinine, Blood 4.29 mg/dL (0.40-1.00); Glomerular Filtration Rate 10 (60-); Glucose, Blood 184 mg/dL (70-99); Phosphorus, Blood 3.4 mg/dL (2.5-4.9); Potassium, Blood 4.4 mmol/L (3.5-5.5); Sodium, Blood 137 mmol/L (136-145)
--- NOTE | 2021-07-02 16:47 | NUR ---
DAY SHIFT SUMMARY 75 YR OLD FEMALE PT, CONFUSED AND FORGETFUL. PT HAD DIALYSIS TODAY. PT WAS NON-COOPERATIVE THIS AM WITH CARE BUT WAS IN BETTER SPIRITS AND MORE COOPERATIVE AFTER DIALYSIS TX. PER CARE MANAGEMENT, PT'S BOYFRIEND (LIZET) CALLED TO STATE HE WOULD BE READY TO HAVE HER BACK HOME ON MONDAY IF SHE IS ABLE TO STAND ON HER OWN. POSSIBLE DISCHARGE AT BEGINNING OF NEXT WEEK. PT HAS CHAIR WITH [facility]. CALL LIGHT WITHIN REACH, NOT ABLE TO CALL APPROPRIATELY, FREQUENT ROUNDING.
[2021-07-03 05:22] LABS: Hemoglobin 10.4 g/dL (11.5-16.0)
[2021-07-03 05:46] LABS: Albumin, Blood 2.4 g/dL (3.4-5.0); Anion Gap 5 mmol/L (6-16); Blood Urea Nitrogen 40 mg/dL (8-24); Bun/Creatinine Ratio 12.6 (12.0-20.0); CO2, Blood 30 mmol/L (21-32); Calcium, Blood 9.1 mg/dL (8.5-10.1); Chloride, Blood 101 mmol/L (98-108); Creatinine, Blood 3.18 mg/dL (0.40-1.00); Glomerular Filtration Rate 14 (60-); Glucose, Blood 154 mg/dL (70-99); Potassium, Blood 4.3 mmol/L (3.5-5.5); Sodium, Blood 136 mmol/L (136-145)
--- NOTE | 2021-07-03 05:47 | NUR ---
SHIFT SUMMARY: PATIENT IS ALERT AND ORIENTED TO SELF. HALLUCINATING AND PARANIOD AT TIMES. REPORTED SEEING CATS ON THE CEILING. PATIENT WAS COMBATIVE DURING INC. CARE BUT DID SAY SHE WAS SORRY. NO COMPLAINTS OF PAIN OR DISCOMFORT. BED ALARM IS ON.
--- NOTE | 2021-07-03 18:22 | NUR ---
SHIFT SUMMARY: PATIENT ALERT AND ORIENTED X 1-3, CONFUSED AND FORGETFUL. COOPERATIVE WITH CARE THROUGHOUT THE SHIFT. ASSISTED TO TALK TO HER BOYFRIEND, LIZET, BY PHONE. PATIENT HAD TWO EPISODES OF DIARRHEA THIS AFTERNOON. DENIES ABDOMINAL PAIN OR DISCOMFORT. WILL CONTINUE TO MONITOR.
--- NOTE | 2021-07-04 05:24 | NUR ---
SHIFT SUMMARY: PATIENT IS A&O TO PERSON AND PLACE WITH PERIODS OF CONFUSION AND RESISTANCE TO CARE. REFUSED FIRST ATTEMPT FOR AM LAB DRAW BUT ALLOWED WITH SECOND ATTEMPT. REPORTED PAIN IN LEFT SHOULDER, TYLENOL WAS GIVEN WITH GOOD EFFECT. VSS, BED ALARM IS ON.
[2021-07-04 05:42] LABS: Hemoglobin 10.6 g/dL (11.5-16.0)
[2021-07-04 06:08] LABS: Albumin, Blood 2.5 g/dL (3.4-5.0); Anion Gap 6 mmol/L (6-16); Blood Urea Nitrogen 50 mg/dL (8-24); Bun/Creatinine Ratio 12.8 (12.0-20.0); CO2, Blood 29 mmol/L (21-32); Calcium, Blood 9.4 mg/dL (8.5-10.1); Chloride, Blood 100 mmol/L (98-108); Creatinine, Blood 3.92 mg/dL (0.40-1.00); Glomerular Filtration Rate 11 (60-); Glucose, Blood 205 mg/dL (70-99); Phosphorus, Blood 3.6 mg/dL (2.5-4.9); Potassium, Blood 4.7 mmol/L (3.5-5.5); Sodium, Blood 135 mmol/L (136-145)
--- NOTE | 2021-07-04 17:22 | NUR ---
SHIFT SUMMARY: PATIENT ALERT AND ORIENTED X 2-3, CONFUSED AND FORGETFUL. COOPERATIVE WITH CARE. HAD DIALYSIS THIS MORNING. ACCUCHECKS AND INSULIN ADMINISTRATED ORDERD. SBP >130, MIDODRINE HELD. PATIENT DENIES PAIN THROUGHOUT THE SHIFT, NO ACUTE CHANGES TO REPORT.
[2021-07-05 04:38] LABS: Hematocrit 32.3 % (33.0-51.0)
[2021-07-05 05:02] LABS: Albumin, Blood 2.3 g/dL (3.4-5.0); Anion Gap 6 mmol/L (6-16); Blood Urea Nitrogen 40 mg/dL (8-24); Bun/Creatinine Ratio 12.6 (12.0-20.0); CO2, Blood 29 mmol/L (21-32); Calcium, Blood 8.9 mg/dL (8.5-10.1); Chloride, Blood 99 mmol/L (98-108); Creatinine, Blood 3.17 mg/dL (0.40-1.00); Glomerular Filtration Rate 14 (60-); Glucose, Blood 169 mg/dL (70-99); Magnesium, Blood 1.8 mg/dL (1.6-2.4); Phosphorus, Blood 2.6 mg/dL (2.5-4.9); Potassium, Blood 4.7 mmol/L (3.5-5.5); Sodium, Blood 134 mmol/L (136-145)
--- NOTE | 2021-07-05 10:08 | NUR ---
ASSUMED CARE AND COMFORT OF THIS PATIENT AT 0710 THIS AM FROM MARILIN RODRÍGUEZ RN. PATIENT RESTING COMFORTABLY EYES CLOSED BREATHING EVEN AND UNLABORED NADN. ROUSES EASILY TO VERBAL STIMULI. RAMIN ASKING ABOUT LIZET HER S.O. PATIENT WORRIED THAT SHE WAS ABLE TO GO HOME LAST WEEK BUT HAS NOT BEEN DISCHARGED FROM HOSPITAL. THIS RN LETS DEBBY KNOW SHE WILL REVIEEW CHART AND ASK THAT LIQUOR GRINDER MILL OPERATOR COME SPEAK WITH HER ABOUT HER CONCERNS. LIZET PATIENTS S.O. CALLS AND ASKS TO SPEAK WITH THIS RN ABOUT DISCHARGE. THIS RN LETS COURTNEY LIQUOR GRINDER MILL OPERATOR KNOW THAT HE IS ON THE PHONE AND WANTS TO KNOW DC PLANS. COURTNEY SAYS NO DISCHARGE AT THIS TIME BUT WILL CALL HIM LATER IN DAY. COURTNEY BARAJAS LETS THIS RN KNOW THAT WAITING FOR NEPHROLOGY TO FIRM UP DIALYSIS DAYS, ALSO STILL PURSUIING SNF PLACEMENT. WILL WAIT FOR GUIDANCE AND DC PLANS FOR DIRECTION OF CARE.
--- NOTE | 2021-07-05 17:13 | NUR ---
SHIFT SUMMARY; PATIENT VERY TEARY DURING DAY. AKSING FOR HER BOYFRIEND LIZET. PATIENT IS EASILY DISTRACTED WITH COLOR CRAYONS AND PAPERS TO COLOR. SHE IS COOPERATIVE WITH CARE AND USES HER CALL LIGHT TO NOTIFY STAFF OF ANY WANTS OR NEEDS. PATIENTS VITALS SIGNS ARE STABLE AND SHE DOES NOT REQUIRE MIDODRINE FOR B/P TODAY. SHE DOES HAVE DIFFICULTY STANDING TO PIVOT TO COMMODE AND PREFERS TO HAVE ATTENDS CHANGED IN BED. PATIENT COMPLAINS OF NOT FEELING WELL THIS EVENING AND SAYS SHE MAY NOT EAT DINNER SO INSULIN 1 UNIT HELD FOR CBG OF 153. SKIN IS INTACT. NO EDEMA TO EXTREMITIES IS NOTED. PLAN IS FOR PATIENT TO GO HOME TOMORROW AFTER DIALYSIS PER DUC WASHER CARCASS.
[2021-07-06 04:38] LABS: Hematocrit 32.6 % (33.0-51.0); Hemoglobin 10.4 g/dL (11.5-16.0)
[2021-07-06 04:54] LABS: Albumin, Blood 2.5 g/dL (3.4-5.0); Anion Gap 7 mmol/L (6-16); Blood Urea Nitrogen 55 mg/dL (8-24); Bun/Creatinine Ratio 13.9 (12.0-20.0); CO2, Blood 30 mmol/L (21-32); Calcium, Blood 9.6 mg/dL (8.5-10.1); Chloride, Blood 99 mmol/L (98-108); Creatinine, Blood 3.96 mg/dL (0.40-1.00); Glomerular Filtration Rate 11 (60-); Glucose, Blood 162 mg/dL (70-99); Magnesium, Blood 1.8 mg/dL (1.6-2.4); Phosphorus, Blood 3.6 mg/dL (2.5-4.9); Potassium, Blood 4.8 mmol/L (3.5-5.5); Sodium, Blood 136 mmol/L (136-145)
--- NOTE | 2021-07-06 06:41 | NUR ---
PT A/O X2 AND STATES THAT IT IS NIGHT, RESP UNLABORED ON RA, INCONTINENT AND BRIEF CHANGED PRN , DIALYSIS CATHETER INTACT LT. CHEST, NO ACUTE DISTRESS THIS SHIFT.
[2021-07-06] MEDS ORDERED: MIDO5 PO (13:21)
--- NOTE | 2021-07-06 14:56 | NUR ---
Pt. is in bed and awake. Pt. welcomes my visit, but didplays evidence of confusion. Pt. confuses me with her several times. Theraputically listen and gently guide the discussion to preparing the pt. for discharge. Pt. doesn't seem to have the capacity to understand what is going to happen. Nurses and care management come to prepare pt. Pastoral prayer was given for the pt. Pt. verbalized gratitude for the spiritual care visit.
--- NOTE | 2021-07-06 15:36 | NUR ---
PATIENT IS DISCHARGED BACK TO [place]. LIZET HER CAREGIVEER / SIGNIFICANT OTHER IS NOTIFIED VIA TELEPHONE AND HE IS GOING TO BE THERE WHEN SHE ARRIVES. PATIENT HAS AN APPOINTMENT AT [facility] IN [place] TOMORROW AT 3:15 AND AN APPOINTMENT WITH [facility] IN A WEEK PER [employer] COURTNEY. PATIENT IS ASSISTED INTO HER PERSONAL CLOTHING BY PORTILLO YODER. SHE IS WAITING IN HER WHEELCHAIR FOR [place] [employer].
== END 2021-07-06 15:12 | disposition home health service (06) | DRG 91 ==
LOC: PCU 18:28 → MEDS 18:28 → PCU 18:30 → MEDS 06-15 22:54
PROVIDERS: Family Medicine; Internal Medicine; Internal Medicine Nephrology; Radiology Diagnostic Radiology; ADMIT Internal Medicine
PROC: 3E03317 Introduction of Other Thrombolytic into Peripheral Vein, Percutaneous Approach (ICD-10-PCS; principal; 2021-07-02)
PROC: 5A1D70Z Performance of Urinary Filtration, Intermittent, Less than 6 Hours Per Day (ICD-10-PCS; 2021-07-02)
DX: G92.8 Other toxic encephalopathy (principal); N18.6 End stage renal disease; N25.81 Secondary hyperparathyroidism of renal origin; E87.1 Hypo-osmolality and hyponatremia; T82.41XA Breakdown (mechanical) of vascular dialysis catheter, initial encounter; I12.0 Hypertensive chronic kidney disease with stage 5 chronic kidney disease or end stage renal disease; Z20.822 Contact with and (suspected) exposure to COVID-19; E11.22 Type 2 diabetes mellitus with diabetic chronic kidney disease; M81.0 Age-related osteoporosis without current pathological fracture; F03.90 Unspecified dementia, unspecified severity, without behavioral disturbance, psychotic disturbance, mood disturbance, and anxiety; I95.9 Hypotension, unspecified; G47.33 Obstructive sleep apnea (adult) (pediatric); E66.9 Obesity, unspecified; G24.01 Drug induced subacute dyskinesia; T50.905A Adverse effect of unspecified drugs, medicaments and biological substances, initial encounter; E87.70 Fluid overload, unspecified; D72.829 Elevated white blood cell count, unspecified; M19.90 Unspecified osteoarthritis, unspecified site; D63.1 Anemia in chronic kidney disease; F32.A Depression, unspecified; Z99.2 Dependence on renal dialysis; Z98.890 Other specified postprocedural states; Z88.0 Allergy status to penicillin; Z88.2 Allergy status to sulfonamides; Z88.8 Allergy status to other drugs, medicaments and biological substances; Z79.899 Other long term (current) drug therapy; Y84.8 Other medical procedures as the cause of abnormal reaction of the patient, or of later complication, without mention of misadventure at the time of the procedure
CPT/HCPCS: 0241U; 36415; 73600; 80053; 80069; 82947; 83735; 84132; 85014; 85018; 85025; 85027; 87040; 87340; 94760; 97110; 97161; 97166; 97530; 97535; A9270; J0881; J1644; J1815; J2997; J3475; J7060